=== PATIENT | male | born 1955 | race African-American/Black ===

== ENCOUNTER 2024-10-03 16:54 | Inpatient (IN) | payer OTHER ==
[2024-10-03 18:37] VITALS: BMI 33.0
[2024-10-03] MEDS ORDERED: Ondansetron ODT 4 MG TAB PO PRN (21:03)
[2024-10-03] MEDS ORDERED: Ondansetron PF 4 MG/2 ML Vial IVP PRN (21:03)
[2024-10-03] MEDS ORDERED: Acetaminophen 650 MG Suppository PR PRN (21:03)
[2024-10-03] MEDS ORDERED: Ipratropium/Albuterol 3 ML NEB NEB PRN (23:43)
[2024-10-03 23:48] LABS: #Basophils Less than 0.03 10x3/uL (0.0-0.2); #Eosinophils Less than 0.03 10x3/uL (0.0-0.7); %Lymphocytes 8.5 % (21.0-51.0); %Monocytes 0.5 % (0.0-10.0); %Neutrophils 90.6 % (42.0-75.0); Hematocrit 39.1 % (42.0-52.0); Hemoglobin 13.5 g/dL (14.0-18.0); Mean Corpuscular HGB CONC 34.5 g/dL (32.0-36.0); Mean Corpuscular Hemoglobin 30.1 pg (27.0-31.0); Mean Corpuscular Volume 87.3 fL (78.0-98.0); Mean Platelet Volume 10.7 fL (7.4-10.4); Platelet Count 221 10x3/uL (130-400); RBC Distribution Width 12.7 % (11.5-14.5); Red Blood Cell (RBC) Count 4.48 mill/uL (4.70-6.10)
[2024-10-03 23:58] LABS: Anion Gap 14 mmol/L (10-20); BUN (Urea Nitrogen) 16 mg/dL (8.4-25.7); Calc. Creatinine Clearance 74 mL/min (70-130); Carbon Dioxide 20 mmol/L (23-31); Chloride 104 mmol/L (98-107); Estimated GFR 60; Glucose 261 mg/dL (80-115); Potassium 4.2 mmol/L (3.5-5.1); Sodium 134 mmol/L (136-145)
[2024-10-04] MEDS: Acetaminophen 325 MG TAB PO SCH (01:06)
[2024-10-04 05:32] LABS: ALT (SGPT) 10 U/L (8-55); AST (SGOT) 13 U/L (5-34); Albumin 3.6 g/dL (3.4-4.8); Alkaline Phosphatase 39 U/L (40-110); Anion Gap 14 mmol/L (10-20); BUN (Urea Nitrogen) 20 mg/dL (8.4-25.7); Bilirubin, Total 0.5 mg/dL (0.2-1.2); Calc. Creatinine Clearance 65 mL/min (70-130); Calcium 9.1 mg/dL (7.8-10.44); Carbon Dioxide 21 mmol/L (23-31); Chloride 105 mmol/L (98-107); Estimated GFR 51; Globulin 3.5 g/dL (2.4-3.5); Glucose 238 mg/dL (80-115); Potassium 4.3 mmol/L (3.5-5.1); Protein, Total 7.1 g/dL (5.8-8.1); Sodium 136 mmol/L (136-145)
[2024-10-04 05:33] LABS: Hemoglobin A1c 7.1 % (4.0-6.0)
[2024-10-04] MEDS ORDERED: Dextrose 5% in Water 1,000 ML IV PRN (06:38)
[2024-10-04] MEDS ORDERED: Dextrose 50% Abboject 50 ML SYRINGE SLOW IVP PRN (06:38)
[2024-10-04] MEDS ORDERED: Glucagon 1 MG/ML KIT IM PRN (06:38)
[2024-10-04] MEDS: Calcium Carbonate 600 MG + Vit D TAB PO SCH (08:27)
[2024-10-04] MEDS: Amlodipine 10 MG TAB PO SCH (08:27)
[2024-10-04] MEDS: Isosorbide Mononitrate 30 MG ER.TAB PO SCH (08:27)
[2024-10-04] MEDS: Lisinopril 20 MG TAB PO SCH (08:27)
[2024-10-04] MEDS: Carvedilol 6.25 MG TAB PO SCH (08:27)
[2024-10-04] MEDS: Clopidogrel Bisulfate 75 MG TAB PO SCH (08:27)
[2024-10-04] MEDS: Aspirin 81 mg Enteric Coated Tablet PO SCH (08:27)
[2024-10-04] MEDS: Furosemide 20 MG TAB PO SCH (08:27)
[2024-10-04] MEDS: Spironolactone 25 MG TAB PO SCH (08:27)
[2024-10-04] MEDS ORDERED: Famotidine 20 MG TAB PO SCH (09:00)
[2024-10-04] MEDS ORDERED: Famotidine/PF 20 mg/2ml Vial SLOW IVP SCH (09:00)
[2024-10-04] MEDS: Insulin Lispro 100 UNIT/ML 10 ML VIAL SC PRN ×2 (17:27→21:53)
[2024-10-04] MEDS: Docusate 100 MG CAP PO PRN (17:27)
[2024-10-04] MEDS: Atorvastatin Calcium 40 MG TAB PO SCH (21:40)
[2024-10-04] MEDS: Ezetimibe 10 MG TAB PO SCH (21:40)
[2024-10-05 01:24] LABS: Hematocrit 35.5 % (42.0-52.0); Mean Corpuscular HGB CONC 33.8 g/dL (32.0-36.0); Mean Corpuscular Hemoglobin 29.9 pg (27.0-31.0); Mean Corpuscular Volume 88.5 fL (78.0-98.0); Mean Platelet Volume 11.3 fL (7.4-10.4); Platelet Count 196 10x3/uL (130-400); RBC Distribution Width 13.2 % (11.5-14.5); Red Blood Cell (RBC) Count 4.01 mill/uL (4.70-6.10)
[2024-10-05 05:04] LABS: Anion Gap 11 mmol/L (10-20); BUN (Urea Nitrogen) 27 mg/dL (8.4-25.7); Calc. Creatinine Clearance 65 mL/min (70-130); Calcium 9.1 mg/dL (7.8-10.44); Carbon Dioxide 26 mmol/L (23-31); Chloride 104 mmol/L (98-107); Estimated GFR 52; Glucose 169 mg/dL (80-115); Magnesium 1.9 mg/dL (1.6-2.6); Potassium 3.9 mmol/L (3.5-5.1); Sodium 137 mmol/L (136-145)
[2024-10-05] MEDS: Loratadine 10 MG TAB PO SCH (09:48)
[2024-10-05] MEDS: Fluticasone Propionate Nasal Spray 16 gm Bottle NASAL SCH (09:48)
[2024-10-05] MEDS: Sodium Chloride 0.9% 500 ML IV SCH (16:48)
[2024-10-06 00:43] LABS: Hematocrit 36.8 % (42.0-52.0); Hemoglobin 12.6 g/dL (14.0-18.0); Mean Corpuscular HGB CONC 34.2 g/dL (32.0-36.0); Mean Corpuscular Hemoglobin 30.1 pg (27.0-31.0); Mean Platelet Volume 11.1 fL (7.4-10.4); Platelet Count 186 10x3/uL (130-400); Red Blood Cell (RBC) Count 4.18 mill/uL (4.70-6.10)
[2024-10-06 04:39] LABS: Anion Gap 12 mmol/L (10-20); BUN (Urea Nitrogen) 23 mg/dL (8.4-25.7); Calc. Creatinine Clearance 80 mL/min (70-130); Carbon Dioxide 20 mmol/L (23-31); Chloride 106 mmol/L (98-107); Estimated GFR 66; Glucose 161 mg/dL (80-115); Magnesium 1.7 mg/dL (1.6-2.6); Potassium 4.4 mmol/L (3.5-5.1); Sodium 134 mmol/L (136-145)
[2024-10-06 16:08] VITALS: BP 120/85; TEMP 98
== END 2024-10-06 17:15 | DRG 202 ==
LOC: 2NO 17:46 → EEVIPCON 17:46 → OBSVTOIN 21:03
PROVIDERS: ADMIT Hospitalist; ATTEND Student in an Organized Health Care Education/Training Program
DX: J45.909 Unspecified asthma, uncomplicated (principal); I13.0 Hypertensive heart and chronic kidney disease with heart failure and stage 1 through stage 4 chronic kidney disease, or unspecified chronic kidney disease; E87.5 Hyperkalemia; N18.9 Chronic kidney disease, unspecified; E11.22 Type 2 diabetes mellitus with diabetic chronic kidney disease; I50.9 Heart failure, unspecified; I25.10 Atherosclerotic heart disease of native coronary artery without angina pectoris; E78.5 Hyperlipidemia, unspecified; Z79.82 Long term (current) use of aspirin; Z79.899 Other long term (current) drug therapy; Z91.041 Radiographic dye allergy status; Z79.4 Long term (current) use of insulin
CPT/HCPCS: 36415; 36416; 71045; 80048; 80053; 83036; 83735; 84484; 85025; 85027; 87633; 93005; 93010; 94640; J0612; J1815; J2919; J7030; J7611; J7644; J7999